=== PATIENT | female | born 1945 | race American Indian/Alaskan Native ===

== ENCOUNTER 2017-08-24 13:38 | Outpatient (CLI) | payer MEDICARE, OTHER ==
--- NOTE | 2017-08-24 15:49 | Mammography Report ---
Screening mammogram: Routine views demonstrates an intermediate density fibroglandular pattern. The left breast pattern is generally unremarkable. There has been a surgical procedure on the right superiorly. There are some scattered asymmetries in the right breast. CAD used. Impression: Right breast asymmetries. Recommendation: Prior exams are being requested for comparison. Recommendations will be issued at that time. BI-RADS CATEGORY: 0 = Needs additional imaging evaluation ACR BI-RADS MAMMOGRAPHIC CODES: 0 = Needs additional imaging evaluation; 1 = Negative; 2 = Benign; 3 = Probably benign; 4 = Suspicious; 5 = Malignant; 6 = Known biopsy-proven malignancy COMMENT: 1. Dense breast tissue, i.e., adenosis, fibrocystic changes, etc., may obscure an underlying neoplasm. 2. Approximately 10% of cancers are not detected with mammography. 3. A negative mammography report should not delay biopsy if a clinically suspicious mass is present.
== END 2017-08-24 13:39 | disposition home or self-care (01) ==
LOC: SPVWC 13:38
PROVIDERS: ATTEND Family Medicine
DX: Z12.31 Encounter for screening mammogram for malignant neoplasm of breast (principal)
CPT/HCPCS: 77067

== ENCOUNTER 2018-06-26 09:23 | Outpatient (CLI) | payer MEDICARE ==
--- NOTE | 2018-06-26 14:04 | Ultrasound Report ---
RIGHT DIGITAL DIAGNOSTIC MAMMOGRAM with CAD and RIGHT BREAST ULTRASOUND: 06/26/18 09:23:00 CLINICAL: Right breast pain for 5 weeks. COMPARISON:08/24/17 right mammogram. FINDINGS: There is scattered fibroglandular densities with a stable fibroglandular pattern. 2 outer benign intraparenchymal lymph nodes.No mass, architectural distortion or suspicious calcifications. Ultrasound of the right breast (including all four quadrants and the retroareolar area) was performed and demonstrated normal structures with no mass, fluid collection or shadowing. A benign cyst at 5 o'clock 3 cm from the nipple measures 3 mm. Benign intraparenchymal lymph nodes at 8:30 o'clock 4 cm from the nipple measuring 7 x 8 x 8 mm and at 10 o'clock 8 cm from the nipple measuring 5 x 4 x 4 mm. IMPRESSION: Benign findings and no explanation for pain. BI-RADS CATEGORY: 2 - - Benign RECOMMENDATION: Clinical followup and routine mammographic screening. COMMENT: 1. Dense breast tissue, i.e., adenosis, fibrocystic changes, etc., may obscure an underlying neoplasm. 2. Approximately 10% of cancers are not detected with mammography. 3. A negative mammography report should not delay biopsy if a clinically suspicious mass is present. COMMENT: Patient follow-up letters are generated via our [employer] application.
== END 2018-06-26 09:24 | disposition home or self-care (01) ==
LOC: SPVWC 09:23
PROVIDERS: ATTEND Family Medicine
DX: N64.4 Mastodynia (principal)

== ENCOUNTER 2019-01-15 11:15 | Outpatient (CLI) | payer MEDICARE ==
--- NOTE | 2019-01-15 16:01 | Mammography Report ---
DIGITAL SCREENING MAMMOGRAM WITH CAD, 01/15/2019 INDICATION: Routine screening mammography. TECHNIQUE: Digital bilateral 2D mammography was obtained in the craniocaudal and mediolateral obliq ue projections. This examination was interpreted with the benefit of Computer-Aided Detection analysi s. COMPARISON: 06/26/2018 and 08/24/2017 FINDINGS: Breast Density: The breasts are heterogeneously dense, which may obscure small masses. Right asymmetries on both views require additional imaging. No architectural distortion or suspicious calcifications of the right breast. There is no evidence of dominant mass, suspicious calcifications or architectural distortion in the left breast. IMPRESSION: Right asymmetries requiring additional imaging. Recommend recall for right spot compressi on views and right breast ultrasound if needed. Follow up recommendation: Routine yearly Category 0: Incomplete. Needs additional imaging evaluation and/or prior mammograms for comparison. A "normal" or negative report should not discourage follow up or biopsy of a clinically significant f inding. A written summary of these findings will be mailed to the patient. The patient will be entered into a mammography reporting system which will generate a reminder letter for the patient's next appointmen t at the appropriate interval. [employer] recommends yearly mammograms starting at age 40 and continuing as l keely as a woman is in good health. Breast MRI is recommended for women with an approximate 20-25% or greater lifetime risk of breast cancer, including women with a strong family history of breast or [place] cancer or who have been treated for Hodgkin's disease. Signer Name: Richard Samaniego MD Signed: 01/15/2019 3:56 PM Workstation Name: [id number]
== END 2019-01-15 11:16 | disposition home or self-care (01) ==
LOC: SPVWC 11:15
PROVIDERS: ATTEND Family Medicine
DX: Z12.31 Encounter for screening mammogram for malignant neoplasm of breast (principal); N64.89 Other specified disorders of breast
CPT/HCPCS: 77067